=== PATIENT | female | born 1970 ===

== ENCOUNTER 2018-11-13 11:11 | Emergency (ER) | payer MEDICAID ==
[2018-11-13 11:22] VITALS: BMI 27.4
--- NOTE | 2018-11-13 11:29 | ED PDOC ---
Arrival/HPI - General Chief Complaint: Lower Extremity Problem/Injury Time Seen by Provider: 11/13/18 11:21 Historian: Patient - History of Present Illness Narrative History of Present Illness (Text): 48 y/o female with PMH of HTN presents to the ED c/o left ankle pain x 2 weeks. Pt had mechanical fall 2 weeks ago and rolled her left ankle but was never evaluated for the injury. Denies head atrike or LOC. Pain is currently to l ateral left foot and ankle, worse with ambulating and movement. Has not atken any medication for pain. Denies fever, chills, numbness, weakness, paresthesias, open wounds, calf pain/swelling, SOB, or any other associated symptoms. Past Medical History - Provider Review Nursing Documentation Reviewed: Yes - Infectious Disease Hx of Infectious Diseases: None - Cardiac Hx Hypertension: Yes - Psychiatric Hx Substance Use: No - Surgical History Hx Section: Yes (x3) - Anesthesia Hx Anesthesia: Yes Hx Anesthesia Reactions: No Hx Malignant Hyperthermia: No Family/Social History - Physician Review Nursing Documentation Reviewed: Yes Family/Social History: No Known Family HX Smoking Status: Never Smoked Hx Alcohol Use: No Hx Substance Use: No Allergies/Home Meds Allergies/Adverse Reactions: Allergies No Known Allergies Allergy (Verified 11/13/18 11:23) Home Medications: Home Meds Medication Instructions Recorded Confirmed Losartan [Cozaar] 1 tab PO DAILY 11/13/18 11/13/18 hydroCHLOROthiazide [Hydrodiuril] 1 tab PO DAILY 11/13/18 11/13/18 Review of Systems - Review of Systems Constitutional: Normal. absent: Fevers ENT: Normal. absent: Sore Throat, Sinus Congestion Respiratory: Normal. absent: SOB, Cough Cardiovascular: Normal. absent: Chest Pain, Palpitations, Syncope Gastrointestinal: Normal. absent: Abdominal Pain, Nausea, Vomiting Musculoskeletal: Other (left foot and ankle pain) Skin: Normal. absent: Rash, Skin Lesions, Cellulitis Neurological: Normal. absent: Headache, Dizziness Endocrine: Normal Hemo/Lymphatic: Normal Psychiatric: Normal Physical Exam Vital Signs Temp Pulse Resp BP Pulse Ox 11/13/18 11:25 98.5 F 99 H 18 119/77 96 Medical Decision Making ED Course and Treatment: Initial Plan: * Left foot Xray * Left ankle xray Pt refusing pain medication at this time Xrays negative for fracture or dislocation Pt placed in [employer] bandage to left foot by metallurgical or materials technicianant [place]. Neurovascular exam remains unchanged. Advised PMD and podiatry followup. Diagnostic testing results and plan of care discussed with patient. Strict instructions given regarding prescription use, importance of followup, and signs/symptoms to return to ER including or any other new/worsening symptoms. Pt verbalized understanding of discussion. Patient is A&Ox3, ambulating with steady gait, with vital signs stable for discharge. - RAD Interpretation Narrative RAD Interpretations (Text): 11/13/18 12:37 Left Ankle XR: FINDINGS: BONES: Normal. No fracture. JOINTS: Normal. No osteoarthritis. Ankle mortise maintained. Talar dome intact SOFT TISSUES: Normal. OTHER FINDINGS: None. IMPRESSION: Normal left ankle radiographs. Left Foot XR: FINDINGS: BONES: Normal. No fracture. JOINTS: Normal. SOFT TISSUES: Normal. OTHER FINDINGS: None. IMPRESSION: Normal left foot radiographs. Radiology Orders: 11/13/18 11:27 ANKLE LEFT 3 VIEWS ROUTINE [RAD] Stat Disposition/Present on Arrival - Present on Arrival Any Indicators Present on Arrival: No History of DVT/PE: No History of Uncontrolled Diabetes: No Urinary Catheter: No History of Decub. Ulcer: No History Surgical Site Infection Following: None - Disposition Have Diagnosis and Disposition been Completed?: Yes Diagnosis: Foot pain, left Disposition: HOME/ ROUTINE Disposition Time: 12:38 Patient Plan: Discharge Condition: IMPROVED Discharge Instructions (ExitCare): Metatarsalgia (DC), Foot Sprain (DC) Additional Instructions: Ibuprofen every 8 hours as needed for pain, take with food Keep injured foot compressed Followup with podiatry within 2 days Followup with primary doctor within 2 days Return to ER with any new/worsening symptoms Prescriptions: Ibuprofen [Motrin Tab] 600 mg PO Q8 #30 tab Referrals: Rex Keene MD [Primary Care Provider] - Follow up with primary Podiatry Clinic [Outside] - Follow up with primary Forms: Surveypal (Spanish), WORK NOTE
--- NOTE | 2018-11-13 12:23 | RAD ---
Date of service: 11/13/2018 PROCEDURE: Left Ankle Radiographs. HISTORY: ankle pain, trauma 2 weeks ago COMPARISON: None available. TECHNIQUE: 3 views obtained. FINDINGS: BONES: Normal. No fracture. JOINTS: Normal. No osteoarthritis. Ankle mortise maintained. Talar dome intact SOFT TISSUES: Normal. OTHER FINDINGS: None. IMPRESSION: Normal left ankle radiographs.
--- NOTE | 2018-11-13 12:24 | RAD ---
Date of service: 11/13/2018 PROCEDURE: Left Foot Radiographs. HISTORY: injury 2 weeks ago, lateral pain COMPARISON: None. TECHNIQUE: 3 views obtained. FINDINGS: BONES: Normal. No fracture. JOINTS: Normal. SOFT TISSUES: Normal. OTHER FINDINGS: None. IMPRESSION: Normal left foot radiographs.
[2018-11-13 12:47] VITALS: BP 124/79; PULSE 90; RESP 17; TEMP 98.3; O2SAT 98
== END 2018-11-13 13:00 | disposition home or self-care (01) ==
LOC: ED 11:11
DX: M79.672 Pain in left foot (principal); I10 Essential (primary) hypertension